=== PATIENT | female | born 1935 | race African-American/Black ===

== ENCOUNTER 2016-08-18 09:08 | Outpatient (CLI) | payer MEDICARE, MEDICAID | END 2016-08-18 09:09 | disposition home or self-care (01) | LOC: NAVSJIPCSP 09:08 | PROVIDERS: ATTEND Internal Medicine | DX: E78.5 Hyperlipidemia, unspecified (principal); E11.65 Type 2 diabetes mellitus with hyperglycemia; Z79.899 Other long term (current) drug therapy | CPT/HCPCS: 36415; 80061; 83036 ==

== ENCOUNTER 2016-10-01 08:34 | Outpatient (CLI) | payer MEDICARE, MEDICAID ==
[2016-10-01 13:08] LABS: Anion Gap 14 mmol/L (10-20); BUN (Urea Nitrogen) 36 mg/dL (9.8-20.1); Calc. Creatinine Clearance 0 mL/min (70-130); Calcium 9.8 mg/dL (7.8-10.44); Carbon Dioxide 27 mmol/L (23-31); Chloride 103 mmol/L (98-107); Estimated GFR-MDRD 28; Glucose 97 mg/dL (83-110); Potassium 4.4 mmol/L (3.5-5.1); Sodium 140 mmol/L (136-145)
[2016-10-02 22:11] LABS: Bilirubin Negative (Negative); Blood, Urine Negative (Negative); Clarity Clear (Clear); Glucose, Urine (Dipstick) Negative (Negative); Leukocyte Negative (Negative); Nitrite Negative (Negative); Protein, Urine (Dipstick) Trace mg/dL (Neg-Trace); Specific Gravity, Urine 1.015 (1.005-1.030); Urobilinogen 0.2 mg/dL (0.2-1.0)
[2016-10-02 22:21] LABS: Squamous Epithelial 0-3 HPF (0-3); WBC/HPF 0-3 HPF (0-3)
[2016-10-02 22:22] LABS: RBC/HPF 0-3 HPF (0-3)
== END 2016-10-01 08:35 | disposition home or self-care (01) ==
LOC: NAVSJIPCSP 08:34
PROVIDERS: ATTEND Internal Medicine
DX: E78.2 Mixed hyperlipidemia (principal); I50.32 Chronic diastolic (congestive) heart failure
CPT/HCPCS: 36415; 80048; 81001

== ENCOUNTER 2016-10-28 08:09 | Outpatient (CLI) | payer MEDICARE, MEDICAID ==
[2016-10-28 13:19] LABS: Anion Gap 15 mmol/L (10-20); BUN (Urea Nitrogen) 40 mg/dL (9.8-20.1); Calc. Creatinine Clearance 0 mL/min (70-130); Carbon Dioxide 26 mmol/L (23-31); Chloride 105 mmol/L (98-107); Estimated GFR-MDRD 28; Glucose 95 mg/dL (83-110); Potassium 4.8 mmol/L (3.5-5.1); Sodium 141 mmol/L (136-145)
== END 2016-10-28 08:10 | disposition home or self-care (01) ==
LOC: NAVSJIPCSP 08:09
PROVIDERS: ATTEND Internal Medicine
DX: N18.3 Chronic kidney disease, stage 3 (moderate) (principal)
CPT/HCPCS: 36415; 80048

== ENCOUNTER 2016-11-17 10:23 | Outpatient (CLI) | payer MEDICARE, MEDICAID ==
[2016-11-17 12:52] LABS: Anion Gap 16 mmol/L (10-20); BUN (Urea Nitrogen) 47 mg/dL (9.8-20.1); Calc. Creatinine Clearance 0 mL/min (70-130); Calcium 9.7 mg/dL (7.8-10.44); Carbon Dioxide 25 mmol/L (23-31); Chloride 102 mmol/L (98-107); Estimated GFR-MDRD 25; Glucose 148 mg/dL (83-110); Sodium 138 mmol/L (136-145)
== END 2016-11-17 10:24 | disposition home or self-care (01) ==
LOC: NAV LABSP 10:23
PROVIDERS: ATTEND Internal Medicine Nephrology
DX: I13.0 Hypertensive heart and chronic kidney disease with heart failure and stage 1 through stage 4 chronic kidney disease, or unspecified chronic kidney disease (principal); N18.3 Chronic kidney disease, stage 3 (moderate); I50.9 Heart failure, unspecified; R60.0 Localized edema
CPT/HCPCS: 36415; 80048

== ENCOUNTER 2016-11-25 09:29 | Outpatient (CLI) | payer MEDICARE, MEDICAID ==
[2016-11-25 12:29] LABS: Hemoglobin A1c 7.1 % (4.0-6.0)
[2016-11-25 13:00] LABS: Cardiac Risk 3.9 (Less than 4.5)
== END 2016-11-25 09:30 | disposition home or self-care (01) ==
LOC: NAVSJIPCSP 09:29
PROVIDERS: ATTEND Internal Medicine
DX: E78.2 Mixed hyperlipidemia (principal); E11.65 Type 2 diabetes mellitus with hyperglycemia
CPT/HCPCS: 36415; 80061; 83036

== ENCOUNTER 2016-12-08 13:05 | Outpatient (CLI) | payer MEDICARE, MEDICAID ==
[2016-12-08 19:16] LABS: Anion Gap 14 mmol/L (10-20); BUN (Urea Nitrogen) 32 mg/dL (9.8-20.1); Calc. Creatinine Clearance 0 mL/min (70-130); Calcium 9.9 mg/dL (7.8-10.44); Carbon Dioxide 23 mmol/L (23-31); Chloride 109 mmol/L (98-107); Estimated GFR-MDRD 33; Glucose 78 mg/dL (83-110); Potassium 4.5 mmol/L (3.5-5.1); Sodium 141 mmol/L (136-145)
[2016-12-08 22:30] LABS: Bilirubin Negative (Negative); Blood, Urine Negative (Negative); Clarity Clear (Clear); Glucose, Urine (Dipstick) Negative (Negative); Leukocyte Trace (Negative); Nitrite Negative (Negative); Protein, Urine (Dipstick) 30 mg/dL (Neg-Trace); Urobilinogen 0.2 mg/dL (0.2-1.0); pH, Urine 5.5 (5.0-9.0)
[2016-12-08 22:51] LABS: RBC/HPF 0-3 HPF (0-3); Specific Gravity, Urine 1.007 (1.002-1.036)
[2016-12-08 22:52] LABS: Bacteria/HPF None Seen HPF (None Seen); WBC/HPF None Seen HPF (0-3)
[2016-12-09 15:56] LABS: Creatinine, Urine 30.4 mg/dL (47-110)
== END 2016-12-08 13:06 | disposition home or self-care (01) ==
LOC: NAVSJIPCSP 13:05
PROVIDERS: ATTEND Internal Medicine
DX: I12.9 Hypertensive chronic kidney disease with stage 1 through stage 4 chronic kidney disease, or unspecified chronic kidney disease (principal); E11.22 Type 2 diabetes mellitus with diabetic chronic kidney disease; N18.3 Chronic kidney disease, stage 3 (moderate); R80.9 Proteinuria, unspecified; R60.0 Localized edema
CPT/HCPCS: 80048; 81001; 82570; 84156; 85014; 85018; 86038

== ENCOUNTER 2017-02-10 16:09 | Outpatient (CLI) | payer MEDICARE, MEDICAID ==
[2017-02-10 17:25] LABS: Anion Gap 15 mmol/L (10-20); BUN (Urea Nitrogen) 28 mg/dL (9.8-20.1); Calc. Creatinine Clearance 0 mL/min (70-130); Calcium 9.6 mg/dL (7.8-10.44); Carbon Dioxide 22 mmol/L (23-31); Chloride 107 mmol/L (98-107); Estimated GFR-MDRD 27; Glucose 179 mg/dL (83-110); Potassium 4.3 mmol/L (3.5-5.1); Sodium 140 mmol/L (136-145)
== END 2017-02-10 16:10 | disposition home or self-care (01) ==
LOC: NAVSJIPCSP 16:09
PROVIDERS: ATTEND Internal Medicine Nephrology
DX: I12.9 Hypertensive chronic kidney disease with stage 1 through stage 4 chronic kidney disease, or unspecified chronic kidney disease (principal); I13.0 Hypertensive heart and chronic kidney disease with heart failure and stage 1 through stage 4 chronic kidney disease, or unspecified chronic kidney disease; N18.3 Chronic kidney disease, stage 3 (moderate)
CPT/HCPCS: 80048

== ENCOUNTER 2017-02-26 09:26 | Outpatient (CLI) | payer MEDICARE, MEDICAID ==
[2017-02-26 12:34] LABS: Hemoglobin A1c 6.6 % (4.0-6.0)
[2017-02-26 13:09] LABS: Cardiac Risk 4.8 (Less than 4.5)
== END 2017-02-26 09:27 | disposition home or self-care (01) ==
LOC: NAVSJIPCSP 09:26
PROVIDERS: ATTEND Internal Medicine
DX: E11.65 Type 2 diabetes mellitus with hyperglycemia (principal); I25.10 Atherosclerotic heart disease of native coronary artery without angina pectoris; E78.5 Hyperlipidemia, unspecified
CPT/HCPCS: 36415; 80061; 83036

== ENCOUNTER 2017-09-30 07:15 | Outpatient (CLI) | payer MEDICARE, MEDICAID ==
--- NOTE | 2017-09-30 08:05 | RAD ---
LEFT HIP 2 VIEWS: Date: 09/30/17 PROVIDED CLINICAL HISTORY: Left hip pain. FINDINGS: There is no evidence for fracture or other acute osseous abnormality. Left hip degenerative changes a re seen. Left hip joint space appears preserved. Alignment appears anatomic. IMPRESSION: Left hip degenerative change. POS: VIC
== END 2017-09-30 07:16 | disposition home or self-care (01) ==
LOC: NAV RAD 07:15
PROVIDERS: ATTEND Internal Medicine
DX: M25.552 Pain in left hip (principal); M16.12 Unilateral primary osteoarthritis, left hip

== ENCOUNTER 2018-08-26 11:59 | Outpatient (CLI) | payer MEDICARE, MEDICAID ==
--- NOTE | 2018-08-26 14:13 | RAD ---
RIGHT SHOULDER THREE VIEWS: 08/26/2018 HISTORY: Shoulder pain. COMPARISON: None. FINDINGS: Postoperative anchors overly the humeral head. There is mild joint space narrowing involving the gle nohumeral joint. There is no widening of the acromioclavicular or coracoclavicular interspace. No d isplaced fracture or dislocation is seen. IMPRESSION: No acute osseous abnormality. POS: VIC
--- NOTE | 2018-08-26 14:18 | RAD ---
TWO VIEWS OF THE LEFT HIP: DATE: 08/26/2018. HISTORY: Left hip pain. FINDINGS: There is moderate superior joint space narrowing involving the left hip with significant left lateral acetabular osteophyte formation. There is subchondral sclerosis and subchondral cystic change invol ving the acetabular roof and the femoral head. No acute fracture or dislocation. There is degenerat deidra change involving the left sacroiliac joint. Imaged lumbar spine demonstrates multilevel lower vanessa mbar spine facet hypertrophy on the left. IMPRESSION: Significant degenerative change of the left hip as detailed above. POS: TOMAS
== END 2018-08-26 12:00 | disposition home or self-care (01) ==
LOC: NAV RAD 11:59
PROVIDERS: ATTEND Orthopaedic Surgery
DX: M25.511 Pain in right shoulder (principal); M25.552 Pain in left hip; M16.12 Unilateral primary osteoarthritis, left hip

== ENCOUNTER 2018-10-16 17:25 | Emergency (ER) | payer MEDICARE, MEDICAID ==
[2018-10-16] MEDS ORDERED: Morphine 4 MG/ML VIAL ONE (17:57)
[2018-10-16 18:24] LABS: Bilirubin Negative (Negative); Blood, Urine Trace (Negative); Clarity Clear (Clear); Glucose, Urine (Dipstick) 100 mg/dL (Negative); Leukocyte Negative (Negative); Nitrite Negative (Negative); Protein, Urine (Dipstick) > or equal to 300 mg/dL (Neg-Trace); Urobilinogen 0.2 mg/dL (0.2-1.0)
--- NOTE | 2018-10-16 18:25 | CT ---
Exam: Head CT without contrast HISTORY: Fall. Weakness x2 weeks. COMPARISON: none FINDINGS: Hemorrhage: No intraparenchymal hemorrhage or extra-axial hematoma. Brain parenchyma: Cortical tapai-white matter differentiation is preserved. No mass effect or midline shift. Basilar cisterns are patent. Brain volume, age-appropriate. Ventricular system: Ventricles and sulci are patent and symmetric. Calvarium: Intact. Sinuses and mastoid air cells: Adequate aeration. IMPRESSION: No acute intracranial process.
--- NOTE | 2018-10-16 18:26 | RAD ---
Exam: One view pelvis HISTORY: Fall. Pain. FINDINGS: Limited evaluation of the sacral alar. Sacroiliac joints appear to be patent. Bony pelvis a ppears to be intact. No fracture. Based on this AP projection, no evidence of a left or right hip fracture. There is degenerative changes involving the left hip. IMPRESSION: No fracture. Additional imaging if clinically warranted.
--- NOTE | 2018-10-16 18:30 | RAD ---
Exam:Left hip 2 views HISTORY: Fall. Pain. COMPARISON: 08/26/2018 FINDINGS: Contour of the femoral head is maintained. Stable degenerative changes with sclerosis and s ubchondral cyst formation. No definite fracture. IMPRESSION: 1. Stable degenerative changes. 2. No definite fracture.
--- NOTE | 2018-10-16 18:32 | RAD ---
Exam:2 views right hip HISTORY: Weakness. COMPARISON: None FINDINGS: Contour of the femoral head is maintained. No fracture. Joint spaces preserved. IMPRESSION: Unremarkable 2 views right hip.
[2018-10-16 18:38] LABS: RBC/HPF 0-3 HPF (0-3); Squamous Epithelial 0-3 HPF (0-3); WBC/HPF 0-3 HPF (0-3)
== END 2018-10-16 19:50 | disposition home or self-care (01) ==
LOC: NAV ERS 17:25
DX: S70.01XA Contusion of right hip, initial encounter (principal); S70.02XA Contusion of left hip, initial encounter; I25.10 Atherosclerotic heart disease of native coronary artery without angina pectoris; E11.9 Type 2 diabetes mellitus without complications; I10 Essential (primary) hypertension; Z87.891 Personal history of nicotine dependence; Z79.899 Other long term (current) drug therapy; Z79.82 Long term (current) use of aspirin; Z79.51 Long term (current) use of inhaled steroids; W19.XXXA Unspecified fall, initial encounter
CPT/HCPCS: 51701; 70450; 72170; 81003; 81015; 96372; A4353; J2270

== ENCOUNTER 2019-03-14 13:06 | Emergency (ER) | payer MEDICARE, MEDICAID ==
[2019-03-14] MEDS ORDERED: Acetaminophen 325 MG TAB ONE (13:44)
[2019-03-14 14:00] LABS: #Eosinphils 0.1 thou/uL (0.0-0.7); #Lymphocytes 1.1 thou/uL (1.20-3.40); #Monocytes 0.3 thou/uL (0.11-0.59); #Neutrophils 3.4 thou/uL (1.40-6.50); %Basophils 0.6 % (0.0-1.0); %Eosinophils 2.8 % (0.0-10.0); %Lymphocytes 21.6 % (21.0-51.0); %Monocytes 5.9 % (0.0-10.0); %Neutrophils 69.2 % (42.0-75.0); Hemoglobin 10.4 g/dL (12.0-16.0); Mean Corpuscular HGB CONC 31.5 g/dL (32.0-36.0); Mean Corpuscular Hemoglobin 26.9 pg (27.0-31.0); Mean Corpuscular Volume 85.4 fL (78.0-98.0); Mean Platelet Volume 6.8 fL (7.4-10.4); Platelet Count 202 thou/uL (130-400); RBC Distribution Width 12.8 % (11.5-14.5); Red Blood Cell (RBC) Count 3.85 mill/uL (4.20-5.40); White Blood Cell (WBC) Count 4.9 thou/uL (4.8-10.8)
--- NOTE | 2019-03-14 14:08 | RAD ---
CHEST 1 VIEW: Date: 03/14/19 HISTORY: Pain. COMPARISON: None. FINDINGS: Atherosclerosis of aortic knob. Normal cardiac silhouette. Pulmonary vessels and hilum are normal. Co stophrenic angles are clear. Patchy interstitial opacities which may represent edema or infiltrate. N o pneumothorax or osseous abnormalities. IMPRESSION: 1. Patchy interstitial opacities which may represent edema or infiltrate. 2. Atherosclerosis. POS: [facility]
[2019-03-14 14:16] LABS: ALT (SGPT) 8 U/L (8-55); AST (SGOT) 11 U/L (5-34); Albumin 3.5 g/dL (3.4-4.8); Alkaline Phosphatase 85 U/L (40-110); Anion Gap 15 mmol/L (10-20); BUN (Urea Nitrogen) 26 mg/dL (9.8-20.1); Bilirubin, Total 0.3 mg/dL (0.2-1.2); Calc. Creatinine Clearance 0 mL/min (70-130); Calcium 9.9 mg/dL (7.8-10.44); Carbon Dioxide 22 mmol/L (23-31); Chloride 110 mmol/L (98-107); Estimated GFR-MDRD 20; Globulin 3.1 g/dL (2.4-3.5); Glucose 142 mg/dL (83-110); Protein, Total 6.6 g/dL (6.0-8.3); Sodium 143 mmol/L (136-145)
== END 2019-03-14 16:15 | disposition home or self-care (01) ==
LOC: NAV ERS 13:06
DX: R07.89 Other chest pain (principal); E11.9 Type 2 diabetes mellitus without complications; I10 Essential (primary) hypertension; J45.909 Unspecified asthma, uncomplicated; Z87.891 Personal history of nicotine dependence; Z85.038 Personal history of other malignant neoplasm of large intestine; Z79.82 Long term (current) use of aspirin; Z79.899 Other long term (current) drug therapy; Z79.84 Long term (current) use of oral hypoglycemic drugs
CPT/HCPCS: 36415; 71045; 80053; 83880; 84484; 85025; 93005

== ENCOUNTER 2019-06-23 12:16 | Outpatient (CLI) | payer MEDICARE, MEDICAID ==
--- NOTE | 2019-06-23 12:42 | RAD ---
EXAM: Chest 2 views: HISTORY: Chest pain COMPARISON: 05/21/2016 FINDINGS: There is a normal-sized cardiomediastinal silhouette. Atherosclerotic calcifications are seen in the aorta. There is no evidence of consolidation, mass, or pleural effusion. Bone anchors are seen in the right humerus from prior rotator cuff repair. IMPRESSION: No evidence of acute cardiopulmonary disease
== END 2019-06-23 12:17 | disposition home or self-care (01) ==
LOC: NAV RAD 12:16
PROVIDERS: ATTEND Internal Medicine
DX: R07.89 Other chest pain (principal)
CPT/HCPCS: 71046

== ENCOUNTER 2019-10-07 20:23 | Inpatient (IN) | payer MEDICARE, MEDICAID ==
[2019-10-07 20:58] VITALS: BMI 18.2
[2019-10-07] MEDS ORDERED: Dextrose 5% in Water 1,000 ML IV PRN (22:31)
[2019-10-07] MEDS ORDERED: Dextrose 50% Abboject 50 ML SYRINGE IVP PRN (22:32)
[2019-10-08] MEDS ORDERED: Heparin 5,000 UNITS/ML VIAL CATH PRN (06:18)
[2019-10-08] MEDS ORDERED: Sterile Water 10 ML VIAL IVP PRN (06:27)
[2019-10-08] MEDS ORDERED: Activase 2 MG VIAL CATH PRN (06:27)
[2019-10-08] MEDS: Lidocaine 5% Patch TD SCH (08:56)
[2019-10-08] MEDS: Polyethylene Glycol 3350 17 GM Packet PO SCH (08:56)
[2019-10-08] MEDS: hydrALAZINE 10 MG TAB PO SCH ×2 (08:56→20:58)
[2019-10-08] MEDS: Ferrous Sulfate 325 MG TAB PO SCH (08:56)
[2019-10-08] MEDS: NIFEdipine XL 30 MG TAB PO SCH (08:57)
[2019-10-08] MEDS: Famotidine 20 MG TAB PO SCH ×2 (08:58→20:58)
[2019-10-08] MEDS: Docusate 100 MG CAP PO SCH ×2 (08:58→20:57)
[2019-10-08] MEDS: Magnesium Oxide 400 MG TAB PO SCH ×2 (08:58→20:58)
[2019-10-08] MEDS: Carvedilol 3.125 MG TAB PO SCH ×2 (08:58→17:04)
[2019-10-08] MEDS: Sildenafil Citrate 20 MG TAB PO SCH ×3 (10:49→19:40)
[2019-10-08] MEDS: Albuterol Sulfate 2.5 mg/3 ml Neb NEB PRN (14:53)
[2019-10-08] MEDS ORDERED: Epoetin (ESRD) 20,000 UNITS/ML IVP PRN (15:19)
[2019-10-08] MEDS ORDERED: EPOETIN ALFA-EPBX (ESRD) 10,000 UNIT/ML VIAL IVP PRN (16:45)
[2019-10-08] MEDS: Lidocaine Patch Removal 1 EACH TOP SCH (20:58)
[2019-10-09] MEDS: HYDROcodone/Acetaminophen 7.5/325 mg Tablet PO PRN (06:27)
[2019-10-09] MEDS: Lidocaine 5% Patch TD SCH (08:51)
[2019-10-09] MEDS: Ferrous Sulfate 325 MG TAB PO SCH (08:51)
[2019-10-09] MEDS: Magnesium Oxide 400 MG TAB PO SCH ×2 (08:52→20:51)
[2019-10-09] MEDS: NIFEdipine XL 30 MG TAB PO SCH (08:52)
[2019-10-09] MEDS: Docusate 100 MG CAP PO SCH ×2 (08:52→20:51)
[2019-10-09] MEDS: Famotidine 20 MG TAB PO SCH ×2 (08:52→20:51)
[2019-10-09] MEDS: Carvedilol 3.125 MG TAB PO SCH ×2 (08:53→16:16)
[2019-10-09] MEDS: hydrALAZINE 10 MG TAB PO SCH ×2 (08:53→20:51)
[2019-10-09] MEDS: Polyethylene Glycol 3350 17 GM Packet PO SCH (08:53)
[2019-10-09] MEDS: Sildenafil Citrate 20 MG TAB PO SCH ×3 (08:54→20:52)
[2019-10-09] MEDS ORDERED: Ondansetron ODT 4 MG TAB PO PRN (18:26)
[2019-10-09] MEDS: Lidocaine Patch Removal 1 EACH TOP SCH (20:52)
--- NOTE | 2019-10-09 21:15 | PRG ---
DATE OF SERVICE: 10/09/2019 SUBJECTIVE: The patient feels well lying in bed. She is still having nausea, but no vomiting. No shortness of breath or chest pain. OBJECTIVE: VITAL SIGNS: Blood pressure 147/65, temperature 99, pulse 80, respirations 18, and O2 sats 96% on room air. HEENT: Pupils equal, round, and reactive to light and accommodation. Sclerae anicteric. Conjunctivae pale. Oral mucous membranes well hydrated. NECK: Supple. No nodes or masses. JVP is not elevated. LUNGS: Clear. CARDIAC: Clear with only few crackles in the bases. CARDIAC: Regular rhythm. No gallops or murmurs. ABDOMEN: Soft and nontender. No masses or organomegaly. SKIN/EXTREMITIES: Trace edema. No clubbing or cyanosis. NEUROLOGICAL: Grossly intact. ASSESSMENT: 1. Recurrent nausea, possibly due to worsening renal failure. We will obtain laboratory today. Awaiting for dialysis in 2 days. We will discuss with Nephrology. 2. Hypertension with adequate control. 3. Type 2 diabetes, controlled to goal. 4. Deconditioning. Awaiting PT and OT. PLAN: 1. CBC and comp met now. 2. Discuss with Dr. Cavazos, who will be back tonight. 3. Follow up with Dr. Ascencio for dialysis on Thursday. 4. Continue Accu-Cheks to monitor and titrate and control of diabetes. 5. Continue to monitor blood pressure closely. Job ID: [id number]
[2019-10-09 21:30] LABS: Band 5 % (5-11); Hemoglobin 8.3 g/dL (12.0-16.0); Hypochromia SLIGHT = 6-15 cells (100X) (0-5/hpf); MDiff Complete? YES; Mean Corpuscular HGB CONC 32.4 g/dL (32.0-36.0); Mean Corpuscular Hemoglobin 29.3 pg (27.0-31.0); Mean Corpuscular Volume 90.4 fL (78.0-98.0); Mean Platelet Volume 7.5 fL (7.4-10.4); Monocytes 6 % (0-10); Neutrophil 89 % (42-75); Platelet Count 208 thou/uL (130-400); Platelet Morphology Comment Appears Adequate; RBC Distribution Width 15.2 % (11.5-14.5); Red Blood Cell (RBC) Count 2.83 mill/uL (4.20-5.40); White Blood Cell (WBC) Count 21.2 thou/uL (4.8-10.8)
[2019-10-09 21:34] LABS: ALT (SGPT) 120 U/L (8-55); AST (SGOT) 157 U/L (5-34); Albumin 2.7 g/dL (3.4-4.8); Alkaline Phosphatase 489 U/L (40-110); Anion Gap 15 mmol/L (10-20); BUN (Urea Nitrogen) 24 mg/dL (9.8-20.1); Bilirubin, Total 1.6 mg/dL (0.2-1.2); Calc. Creatinine Clearance 9 mL/min (70-130); Calcium 8.7 mg/dL (7.8-10.44); Carbon Dioxide 25 mmol/L (23-31); Chloride 102 mmol/L (98-107); Estimated GFR-MDRD 15; Globulin 2.8 g/dL (2.4-3.5); Glucose 170 mg/dL (83-110); Potassium 4.4 mmol/L (3.5-5.1); Protein, Total 5.5 g/dL (6.0-8.3); Sodium 138 mmol/L (136-145)
--- NOTE | 2019-10-10 02:01 | HP ---
HISTORY OF PRESENT ILLNESS: The patient is an unfortunate 83-year-old white female with a long history of hypertension, diabetes, hyperlipidemia with gradually progressive chronic kidney disease. She has progressed to the point that she has required initiation of dialysis. She is admitted to the skilled unit to continue followup with dialysis as she has not done well at home on this after being initiated in the hospital. She is complaining of some nausea, but no shortness of breath or chest pain. She did receive dialysis the day prior to admission. She is not having any fever or chills. PAST MEDICAL HISTORY: Remarkable for above-mentioned poorly controlled diabetes, hypertension, hyperlipidemia, chronic kidney disease stage 4, being followed by Dr. Ascencio, congestive heart failure, unknown type with no echocardiogram available. She also has a history of secondary pulmonary hypertension, gastroesophageal reflux, malignant neoplasm of the colon, gout. PAST SURGICAL HISTORY: Positive for colon resection in 2008. FAMILY MEDICAL HISTORY: Positive for heart disease and stroke. ALLERGIES: SHE HAS NO KNOWN ALLERGIES. REVIEW OF SYSTEMS: HEENT: She denies headaches, dizziness, change in vision or hearing, hoarseness, or dysphagia. PULMONARY: She denies cough, sputum production. Does have dyspnea on exertion, not at rest. No sputum production. CARDIOVASCULAR: Denies chest pain, palpitation. She does have one-pillow orthopnea and no edema. GASTROINTESTINAL: Does complain of nausea with no vomiting or diarrhea. She does have poor appetite. GENITOURINARY: Denies dysuria, hematuria. Is still putting out urine, but lesser amount. NEUROLOGIC: Denies localized numbness, weakness, to arm or extremities. PHYSICAL EXAMINATION: GENERAL: Shows her to be elderly black female, lying in bed, in no acute distress. Oriented x3 and cooperative. VITAL SIGNS: Showed a temperature of 98.3, pulse 63, respirations 20, O2 sats 97% on room air, blood pressure 183/81. HEENT: Pupils are equal, round, and reactive to light and accommodation. Sclerae anicteric. Conjunctivae pale. Oral mucous membranes well hydrated. NECK: Supple. No nodes or masses. JVP is not elevated. LUNGS: Clear. Decreased breath sounds at bases. CARDIAC: Shows regular rhythm. No gallops or murmurs. ABDOMEN: Soft and nontender with no masses or organomegaly. SKIN/EXTREMITIES: Display no edema, clubbing, cyanosis. There is a tunneled catheter in the right side of the chest from dialysis. NEUROLOGIC: Denies localized numbness or weakness in arms or extremities. Has normal strength, sensation on all her extremities. LABORATORY: Show Accu-Cheks range 134 to 170. ASSESSMENT: 1. End-stage renal disease with initiation of dialysis initially done day before yesterday and not scheduled until next week. 2. Hypertension, fair control. 3. Type 2 diabetes with good control. 4. Gastroesophageal reflux, stable. 5. Deconditioning. PLAN: 1. Restart home medications of sildenafil 20 mg 3 times daily for pulmonary hypertension, hydralazine 10 mg twice daily, nifedipine 30 mg daily for systolic hypertension with carvedilol 3.125 twice daily. 2. Continue Accu-Cheks to monitor and titrate and control diabetes. 3. Restart dialysis on Thursday. Job ID: [id number]
[2019-10-10] MEDS: Magnesium Oxide 400 MG TAB PO SCH ×2 (08:22→20:36)
[2019-10-10] MEDS: Ferrous Sulfate 325 MG TAB PO SCH (08:22)
[2019-10-10] MEDS: hydrALAZINE 10 MG TAB PO SCH ×2 (08:22→20:06)
[2019-10-10] MEDS: Lidocaine 5% Patch TD SCH (08:22)
[2019-10-10] MEDS: NIFEdipine XL 30 MG TAB PO SCH (08:22)
[2019-10-10] MEDS: Famotidine 20 MG TAB PO SCH ×2 (08:22→20:36)
[2019-10-10] MEDS: Sildenafil Citrate 20 MG TAB PO SCH ×4 (08:23→20:36)
[2019-10-10] MEDS: Carvedilol 3.125 MG TAB PO SCH ×2 (08:23→17:27)
[2019-10-10] MEDS: Docusate 100 MG CAP PO SCH ×2 (08:23→20:07)
[2019-10-10] MEDS: Polyethylene Glycol 3350 17 GM Packet PO SCH (08:23)
[2019-10-10] MEDS: HumaLOG 300 UNITS/3 ML VIAL SC PRN (12:05)
--- NOTE | 2019-10-10 13:28 | PRG ---
DATE OF SERVICE: 10/10/2019 SUBJECTIVE: Ms. Tillman is up in her chair and just finished lunch. She denies any concerns. She did have an episode of abdominal pain yesterday, but none today. She is noticing some exertional shortness of breath. No chest pain. No PND or orthopnea. No family at bedside. OBJECTIVE: VITAL SIGNS: She is afebrile. Heart rate is 71, respirations 18, oxygen saturation 99%. She still has nasal cannula on her. Blood pressure is 151/71. CARDIOVASCULAR: S1 and S2 plus. RESPIRATORY: Normal vesicular breath sounds. ABDOMEN: Soft, nontender. Bowel sounds heard in all quadrants. EXTREMITIES: Without cyanosis or clubbing. CENTRAL NERVOUS SYSTEM: Generalized weakness. She does have a tunneled catheter in the right subclavian for dialysis. IMPRESSION: 1. Pulmonary hypertension. 2. Acute hypoxemic respiratory failure. 3. Biliary stricture, status post endoscopic retrograde cholangiopancreatography and stent placement. 4. Diabetes mellitus, type 2. 5. Hypertension. 6. Dyslipidemia. 7. Now end-stage renal disease, on dialysis. 8. Gastroesophageal reflux disease and history of colon cancer, status post surgery. PLAN: 1. Continue current medications. 2. Heart healthy ADA diet. 3. Accu-Cheks with sliding scale coverage. 4. Dialysis on Thursday, , Thursday. 5. Monitor liver function. 6. Try to get records from the hospital to see if any pathologies available on the biliary stricture. 7. Titrate oxygen. 8. Continue PT/OT. 9. Tunneled dialysis catheter care. 10. Routine laboratory values. 11. Discussed with the patient in detail. All questions answered. Job ID: [id number]
[2019-10-10] MEDS: HYDROcodone/Acetaminophen 7.5/325 mg Tablet PO PRN (20:38)
[2019-10-10] MEDS: Lidocaine Patch Removal 1 EACH TOP SCH (20:39)
[2019-10-11 06:02] LABS: #Eosinphils 0.1 thou/uL (0.0-0.7); #Lymphocytes 0.3 thou/uL (1.20-3.40); #Monocytes 0.8 thou/uL (0.11-0.59); #Neutrophils 8.1 thou/uL (1.40-6.50); %Basophils 0.3 % (0.0-1.0); %Lymphocytes 3.6 % (21.0-51.0); %Monocytes 8.7 % (0.0-10.0); %Neutrophils 86.5 % (42.0-75.0); Hemoglobin 7.4 g/dL (12.0-16.0); Mean Corpuscular HGB CONC 31.4 g/dL (32.0-36.0); Mean Corpuscular Hemoglobin 28.3 pg (27.0-31.0); Mean Corpuscular Volume 89.9 fL (78.0-98.0); Mean Platelet Volume 7.7 fL (7.4-10.4); Platelet Count 215 thou/uL (130-400); RBC Distribution Width 15.4 % (11.5-14.5); White Blood Cell (WBC) Count 9.4 thou/uL (4.8-10.8)
[2019-10-11 06:08] LABS: ALT (SGPT) 64 U/L (8-55); AST (SGOT) 41 U/L (5-34); Albumin 2.7 g/dL (3.4-4.8); Alkaline Phosphatase 354 U/L (40-110); Anion Gap 13 mmol/L (10-20); BUN (Urea Nitrogen) 34 mg/dL (9.8-20.1); Bilirubin, Total 1.1 mg/dL (0.2-1.2); Calc. Creatinine Clearance 8 mL/min (70-130); Calcium 8.7 mg/dL (7.8-10.44); Carbon Dioxide 27 mmol/L (23-31); Chloride 103 mmol/L (98-107); Estimated GFR-MDRD 14; Globulin 2.9 g/dL (2.4-3.5); Glucose 91 mg/dL (83-110); Potassium 4.4 mmol/L (3.5-5.1); Protein, Total 5.6 g/dL (6.0-8.3); Sodium 139 mmol/L (136-145)
[2019-10-11] MEDS: Docusate 100 MG CAP PO SCH ×2 (08:23→21:14)
[2019-10-11] MEDS: Magnesium Oxide 400 MG TAB PO SCH ×2 (08:23→21:14)
[2019-10-11] MEDS: Ferrous Sulfate 325 MG TAB PO SCH (08:23)
[2019-10-11] MEDS: hydrALAZINE 10 MG TAB PO SCH ×2 (08:24→21:14)
[2019-10-11] MEDS: Famotidine 20 MG TAB PO SCH ×2 (08:24→21:14)
[2019-10-11] MEDS: Carvedilol 3.125 MG TAB PO SCH ×2 (08:24→16:44)
[2019-10-11] MEDS: NIFEdipine XL 30 MG TAB PO SCH (08:25)
[2019-10-11] MEDS: Lidocaine 5% Patch TD SCH (08:25)
[2019-10-11] MEDS: Sildenafil Citrate 20 MG TAB PO SCH ×4 (08:26→21:14)
[2019-10-11] MEDS: Polyethylene Glycol 3350 17 GM Packet PO SCH (08:26)
[2019-10-11] MEDS: HYDROcodone/Acetaminophen 7.5/325 mg Tablet PO PRN (10:02)
--- NOTE | 2019-10-11 18:33 | PRG ---
DATE OF SERVICE: 10/11/2019 SUBJECTIVE: Ms. Tillman was seen on her way to dialysis. She had a hemoglobin of 7.4, but she is asymptomatic. I did tell them to hold her blood pressure medicines, but give her the Revatio, but apparently therefore she was not in yet from [place]. She had a restful night. No family at bedside. OBJECTIVE: VITAL SIGNS: She is afebrile. Heart rate is 76, blood pressure is 160/77. CARDIOVASCULAR SYSTEM: S1 and S2 plus. RESPIRATORY SYSTEM: Normal vesicular breath sounds. ABDOMEN: Soft and nontender. Bowel sounds heard in all quadrants. EXTREMITIES: Without cyanosis or clubbing. CENTRAL NERVOUS SYSTEM: Improving deconditioning. LABORATORY DATA: Laboratory values from this morning shows a hemoglobin of 7.4. Sodium 139, potassium 4.4, BUN and creatinine is 34 and 3.86. Blood sugars are 113, 241, 100, 140, and 90. IMPRESSION: 1. Anemia, worsening, likely due to chronic disease. 2. Pulmonary hypertension. 3. Diabetes mellitus, type 2. 4. End-stage renal disease, on hemodialysis. 5. Biliary stricture, requiring stent placement. Awaiting records. 6. Hypertension. 7. Dyslipidemia. 8. Gastroesophageal reflux disease. 9. History of colon cancer. 10. Acute hypoxemic respiratory failure. PLAN: 1. Continue to titrate oxygen. 2. Monitor respiratory status. 3. 1800 calorie, heart healthy, and renal diet. 4. Accu-Cheks with sliding scale coverage. 5. Hemodialysis. 6. Monitor blood counts and transfuse if hemoglobin less than 7. 7. Continue PT/OT. 8. Await lab reports from the hospital regarding pathology. 9. Discussed with the patient and nursing in detail. All questions answered. Job ID: [id number]
[2019-10-11] MEDS: Lidocaine Patch Removal 1 EACH TOP SCH (21:15)
[2019-10-11] MEDS: HumaLOG 300 UNITS/3 ML VIAL SC PRN (21:18)
[2019-10-12 05:58] LABS: Anisocytosis SLIGHT = 6-15 cells (100X) (0-5/hpf); Band 20 % (5-11); Eosinophils 2 % (0-10); Hemoglobin 7.4 g/dL (12.0-16.0); Hypochromia MODERATE=16-30 cells (100X) (0-5/hpf); Lymphocytes 2 % (21-51); MDiff Complete? YES; Mean Corpuscular HGB CONC 32.2 g/dL (32.0-36.0); Mean Corpuscular Hemoglobin 29.2 pg (27.0-31.0); Mean Corpuscular Volume 90.7 fL (78.0-98.0); Mean Platelet Volume 7.9 fL (7.4-10.4); Metamyelocyte 1 % (0-0); Monocytes 2 % (0-10); Neutrophil 73 % (42-75); Platelet Count 209 thou/uL (130-400); Platelet Morphology Comment Appears Adequate; Polychromasia SLIGHT = 2-3 cells (100X) (0-2/hpf); RBC Distribution Width 15.4 % (11.5-14.5); Red Blood Cell (RBC) Count 2.53 mill/uL (4.20-5.40); White Blood Cell (WBC) Count 8.8 thou/uL (4.8-10.8)
[2019-10-12] MEDS: Lidocaine 5% Patch TD SCH (08:25)
[2019-10-12] MEDS: Sildenafil Citrate 20 MG TAB PO SCH ×3 (08:25→21:21)
[2019-10-12] MEDS: Magnesium Oxide 400 MG TAB PO SCH ×2 (08:25→21:21)
[2019-10-12] MEDS: Famotidine 20 MG TAB PO SCH ×2 (08:25→21:20)
[2019-10-12] MEDS: hydrALAZINE 10 MG TAB PO SCH ×2 (08:25→21:20)
[2019-10-12] MEDS: Carvedilol 3.125 MG TAB PO SCH ×2 (08:25→16:20)
[2019-10-12] MEDS: Docusate 100 MG CAP PO SCH ×2 (08:25→21:20)
[2019-10-12] MEDS: Ferrous Sulfate 325 MG TAB PO SCH (08:25)
[2019-10-12] MEDS: NIFEdipine XL 30 MG TAB PO SCH (08:25)
[2019-10-12] MEDS: Polyethylene Glycol 3350 17 GM Packet PO SCH (08:26)
--- NOTE | 2019-10-12 12:59 | PRG ---
DATE OF SERVICE: 10/12/2019 SUBJECTIVE: Ms. Tillman is doing the same. Denies any complaints. She had her dialysis yesterday. Rechecked her hemoglobin and still 7.4. OBJECTIVE: VITAL SIGNS: She is afebrile, heart rate 67, and respirations 16. No other vitals documented. CARDIOVASCULAR SYSTEM: S1 and S2 plus. RESPIRATORY SYSTEM: Normal vesicular breath sounds. ABDOMEN: Soft and nontender. Bowel sounds heard in all quadrants. EXTREMITIES: Without cyanosis or clubbing. CENTRAL NERVOUS SYSTEM: Generalized weakness. LABORATORY VALUES: Show a white count of 8.8 and H and H are 7.4 and 22.9. Blood sugars are 140, 90, 104, 238, and 129. IMPRESSION: 1. Anemia, likely due to end-stage renal disease. 2. End-stage renal disease, currently on hemodialysis. 3. Pulmonary hypertension. 4. Diabetes mellitus, type 2. 5. Biliary stricture status post stent placement. 6. Deconditioning. 7. Acute hypoxemic respiratory failure. 8. Hypertension. 9. Dyslipidemia. 10. Gastroesophageal reflux disease. PLAN: 1. Continue current medications. 2. An 1800-calorie heart healthy ADA renal diet. 3. Accu-Cheks with sliding scale coverage. 4. Hemodialysis per Nephrology. 5. Monitor blood counts. 6. Continue therapy. 7. Get pathology results from [facility]. 8. Nutritional support. 9. Discussed with the patient in detail. 10. Titrate oxygen and monitor respiratory status. Job ID: [id number]
[2019-10-12] MEDS: HYDROcodone/Acetaminophen 7.5/325 mg Tablet PO PRN (16:19)
[2019-10-12] MEDS: HumaLOG 300 UNITS/3 ML VIAL SC PRN (17:37)
[2019-10-12] MEDS: Lidocaine Patch Removal 1 EACH TOP SCH (21:21)
[2019-10-13] MEDS: NIFEdipine XL 30 MG TAB PO SCH (08:15)
[2019-10-13] MEDS: hydrALAZINE 10 MG TAB PO SCH ×2 (08:16→21:07)
[2019-10-13] MEDS: Carvedilol 3.125 MG TAB PO SCH ×2 (08:17→17:16)
[2019-10-13] MEDS: Ferrous Sulfate 325 MG TAB PO SCH (08:18)
[2019-10-13] MEDS: Docusate 100 MG CAP PO SCH ×2 (08:18→21:08)
[2019-10-13] MEDS: Famotidine 20 MG TAB PO SCH ×2 (08:18→21:07)
[2019-10-13] MEDS: Sildenafil Citrate 20 MG TAB PO SCH ×3 (08:20→21:08)
[2019-10-13] MEDS: Polyethylene Glycol 3350 17 GM Packet PO SCH (08:20)
[2019-10-13] MEDS: Lidocaine 5% Patch TD SCH (08:20)
[2019-10-13] MEDS: Magnesium Oxide 400 MG TAB PO SCH ×2 (08:20→21:07)
--- NOTE | 2019-10-13 13:53 | PRG ---
DATE OF SERVICE: 10/13/2019 SUBJECTIVE: Ms. Tillman is seen on her way to dialysis. She denies any questions or concerns. Discussed with Nursing. OBJECTIVE: VITAL SIGNS: She is afebrile, heart rate 73, respirations 18, oxygen saturation 100%, and blood pressure was 156/70. CARDIOVASCULAR: S1 and S2 plus. RESPIRATORY: Normal vesicular breath sounds. ABDOMEN: Soft and nontender. Bowel sounds heard in all quadrants. EXTREMITIES: Without cyanosis or clubbing. CENTRAL NERVOUS SYSTEM: Improving deconditioning. LABORATORY DATA: Blood sugars are 129, 305, 125, and 119. IMPRESSION: 1. Acute hypoxemic respiratory failure. 2. End-stage renal disease, just started on hemodialysis. 3. Biliary stricture, status post stent placement. 4. Pulmonary hypertension. 5. Diabetes mellitus, type 2. 6. Deconditioning. 7. Systemic hypertension. 8. Dyslipidemia. 9. Gastroesophageal reflux disease. 10. Anemia, likely multifactorial. PLAN: 1. Continue current medications. 2. 1800 calorie heart healthy ADA diet. 3. Accu-Cheks with sliding scale coverage. 4. Hemodialysis. 5. Await records from [facility]. 6. Continue physical therapy. 7. Routine laboratory values. 8. Monitor respiratory status. Job ID: [id number]
[2019-10-13] MEDS: HumaLOG 300 UNITS/3 ML VIAL SC PRN (17:47)
[2019-10-13] MEDS: Lidocaine Patch Removal 1 EACH TOP SCH (21:09)
[2019-10-14] MEDS: hydrALAZINE 10 MG TAB PO SCH ×2 (08:21→20:43)
[2019-10-14] MEDS: Sildenafil Citrate 20 MG TAB PO SCH ×3 (08:21→20:43)
[2019-10-14] MEDS: NIFEdipine XL 30 MG TAB PO SCH (08:22)
[2019-10-14] MEDS: Famotidine 20 MG TAB PO SCH ×2 (08:22→20:43)
[2019-10-14] MEDS: Docusate 100 MG CAP PO SCH ×2 (08:22→20:43)
[2019-10-14] MEDS: Ferrous Sulfate 325 MG TAB PO SCH (08:22)
[2019-10-14] MEDS: Magnesium Oxide 400 MG TAB PO SCH ×2 (08:22→20:43)
[2019-10-14] MEDS: Carvedilol 3.125 MG TAB PO SCH ×2 (08:22→17:20)
[2019-10-14] MEDS: Lidocaine 5% Patch TD SCH (08:23)
[2019-10-14] MEDS: Polyethylene Glycol 3350 17 GM Packet PO SCH (08:23)
--- NOTE | 2019-10-14 11:22 | PRG ---
DATE OF SERVICE: 10/14/2019 SUBJECTIVE: Ms. Tillman is resting in bed. She states that she feels tired. She is tolerating her dialysis. giving her info on how to arrange for dialysis transportation, but the patient states that she may just have her son-in-law take her. Plan is to try to titrate her off the oxygen. Discussed with therapy, and they state the patient is improving and hopefully should be ready to go home by the middle of next week. OBJECTIVE: VITAL SIGNS: The patient is afebrile, heart rate 71, respirations 18, oxygen saturation 99% on 1 L, blood pressure 159/68. CARDIOVASCULAR: S1 and S2 plus. RESPIRATORY: Normal vesicular breath sounds. ABDOMEN: Soft and nontender. Bowel sounds heard in all quadrants. EXTREMITIES: Without cyanosis or clubbing. CENTRAL NERVOUS SYSTEM: Improving deconditioning. LABORATORY DATA: Blood sugars are 119, 174, 196, and 142. IMPRESSION: 1. Diabetes mellitus, type 2. 2. Systemic and pulmonary hypertension. 3. Acute hypoxemic respiratory failure. 4. End-stage renal disease, now on hemodialysis. 5. Improving deconditioning. 6. Biliary stricture, status post stent placement. PLAN: 1. Continue current medications. 2. 1800-calorie heart-healthy ADA diet. 3. Accu-Cheks with sliding scale coverage. 4. Titrate oxygen and monitor respiratory status. 5. Await records from the [facility]. We have asked for it twice. 6. Discharge planning. 7. Continue hemodialysis. 8. Recheck labs tomorrow. Job ID: [id number]
[2019-10-14] MEDS: HYDROcodone/Acetaminophen 7.5/325 mg Tablet PO PRN (17:32)
[2019-10-14] MEDS: HumaLOG 300 UNITS/3 ML VIAL SC PRN (17:34)
[2019-10-14] MEDS: Lidocaine Patch Removal 1 EACH TOP SCH (20:44)
[2019-10-15 05:46] LABS: Band 6 % (5-11); Eosinophils 2 % (0-10); Hemoglobin 7.9 g/dL (12.0-16.0); Lymphocytes 24 % (21-51); MDiff Complete? YES; Mean Corpuscular HGB CONC 30.2 g/dL (32.0-36.0); Mean Corpuscular Hemoglobin 28.1 pg (27.0-31.0); Mean Corpuscular Volume 93.2 fL (78.0-98.0); Mean Platelet Volume 7.7 fL (7.4-10.4); Monocytes 6 % (0-10); Neutrophil 62 % (42-75); Platelet Count 199 thou/uL (130-400); Platelet Morphology Comment Appears Adequate; RBC Distribution Width 15.4 % (11.5-14.5); Red Blood Cell (RBC) Count 2.82 mill/uL (4.20-5.40); Stomatocytes SLIGHT = 2-5 cells (100X) (0-1/hpf); Target Cells SLIGHT = 2-5 cells (100X) (0-1/hpf); White Blood Cell (WBC) Count 5.4 thou/uL (4.8-10.8)
--- NOTE | 2019-10-15 06:57 | PRG ---
DATE OF SERVICE: 10/15/2019 SUBJECTIVE: Ms. Tillman is up in bed. She apparently slept decent. She is off her oxygen. She denies any questions or concerns. She is getting ready for her dialysis this morning. OBJECTIVE: VITAL SIGNS: She is afebrile. Heart rate is 69, respirations 20, oxygen saturation 93% on room air, blood pressure 139/64. CARDIOVASCULAR SYSTEM: S1 and S2 plus. RESPIRATORY SYSTEM: Normal vesicular breath sounds. ABDOMEN: Soft, nontender. Bowel sounds heard in all quadrants. EXTREMITIES: Without cyanosis or clubbing. CENTRAL NERVOUS SYSTEM: Improving deconditioning. LABORATORY VALUES: White count is 5.4, H and H are 7.9 and 26.2. Blood sugars are 174, 191, and 137. IMPRESSION: 1. Diabetes mellitus, type 2. 2. Systematic and pulmonary hypertension. 3. Resolved acute hypoxemic respiratory failure. 4. Biliary stricture requiring stent placement. 5. End-stage renal disease, now on hemodialysis. 6. Deconditioning. PLAN: 1. Continue current medications. 2. 1800-calorie heart healthy ADA renal diet. 3. Hemodialysis Thursday, , Thursday. 4. Accu-Cheks with sliding scale coverage. 5. Await records from [facility]. 6. Continue therapy. 7. Discharge planning. Anticipate her going home early next week. Job ID: [id number]
[2019-10-15] MEDS: Docusate 100 MG CAP PO SCH ×2 (08:15→20:51)
[2019-10-15] MEDS: Polyethylene Glycol 3350 17 GM Packet PO SCH (08:15)
[2019-10-15] MEDS: Magnesium Oxide 400 MG TAB PO SCH ×2 (08:15→20:52)
[2019-10-15] MEDS: Ferrous Sulfate 325 MG TAB PO SCH (08:16)
[2019-10-15] MEDS: Sildenafil Citrate 20 MG TAB PO SCH ×3 (08:16→20:52)
[2019-10-15] MEDS: Famotidine 20 MG TAB PO SCH ×2 (08:16→20:53)
[2019-10-15] MEDS: hydrALAZINE 10 MG TAB PO SCH ×3 (08:17→20:59)
[2019-10-15] MEDS: NIFEdipine XL 30 MG TAB PO SCH (08:17)
[2019-10-15] MEDS: Carvedilol 3.125 MG TAB PO SCH ×2 (08:18→16:33)
[2019-10-15] MEDS: Lidocaine 5% Patch TD SCH (08:21)
[2019-10-15] MEDS ORDERED: EPOETIN ALFA-EPBX (ESRD) 10,000 UNIT/ML VIAL SC SCH (09:00)
[2019-10-15] MEDS: HumaLOG 300 UNITS/3 ML VIAL SC PRN (16:57)
[2019-10-15] MEDS: Lidocaine Patch Removal 1 EACH TOP SCH (19:33)
[2019-10-15] MEDS: HYDROcodone/Acetaminophen 7.5/325 mg Tablet PO PRN (20:53)
[2019-10-16] MEDS: Albuterol Sulfate 2.5 mg/3 ml Neb NEB PRN ×2 (05:52→15:45)
[2019-10-16] MEDS: hydrALAZINE 10 MG TAB PO SCH ×2 (08:11→21:03)
[2019-10-16] MEDS: NIFEdipine XL 30 MG TAB PO SCH (08:13)
[2019-10-16] MEDS: Ferrous Sulfate 325 MG TAB PO SCH (08:14)
[2019-10-16] MEDS: Carvedilol 3.125 MG TAB PO SCH ×2 (08:14→15:46)
[2019-10-16] MEDS: Famotidine 20 MG TAB PO SCH ×2 (08:14→21:02)
[2019-10-16] MEDS: Magnesium Oxide 400 MG TAB PO SCH ×2 (08:15→21:02)
[2019-10-16] MEDS: Docusate 100 MG CAP PO SCH ×2 (08:15→21:02)
[2019-10-16] MEDS: Lidocaine 5% Patch TD SCH ×2 (08:15→12:10)
[2019-10-16] MEDS: Sildenafil Citrate 20 MG TAB PO SCH ×3 (08:16→21:03)
[2019-10-16] MEDS: Polyethylene Glycol 3350 17 GM Packet PO SCH (08:16)
[2019-10-16] MEDS: HumaLOG 300 UNITS/3 ML VIAL SC PRN (11:56)
--- NOTE | 2019-10-16 13:44 | PRG ---
DATE OF SERVICE: 10/16/2019 SUBJECTIVE: Ms. Tillman is resting in bed. She states that she would like something for sleep. She is doing well otherwise. She is remaining off her oxygen and saturating well. Plan is for her to be discharged probably Thursday or Thursday of next week. OBJECTIVE: VITAL SIGNS: She is afebrile. Heart rate 66, respirations 18, oxygen saturation 95% on room air, blood pressure 180/88, this was before her morning blood pressure medicines. CARDIOVASCULAR: S1 and S2 plus. RESPIRATORY: Normal vesicular breath sounds. ABDOMEN: Soft and nontender. Bowel sounds heard in all quadrants. EXTREMITIES: Without cyanosis or clubbing. CENTRAL NERVOUS SYSTEM: Improving deconditioning. LABORATORY DATA: Blood sugars are 234, 186, 120, and 302. IMPRESSION: 1. Diabetes mellitus, type 2. 2. Systemic and pulmonary hypertension. 3. End-stage renal disease, now on hemodialysis. 4. Resolved acute hypoxemic respiratory failure. 5. Biliary stricture with possible stent placement. I am waiting on records of the procedure and biopsy report. They sent me a biopsy report from 2017, on her colonoscopy. Nursing is to call them again. 6. Improving deconditioning. 7. Dyslipidemia. 8. Gastroesophageal reflux disease. PLAN: 1. Continue current medications. 2. 1800-calorie heart-healthy ADA renal diet. 3. Accu-Cheks with sliding scale coverage. 4. DVT prophylaxis with PlexiPulses. 5. Decubitus precautions. 6. Stress ulcer prophylaxis. 7. Dialysis per Nephrology. 8. Continue therapy. 9. Discharge planning. 10. Start melatonin for sleep. Job ID: [id number]
[2019-10-16] MEDS: Melatonin 3 MG TAB PO PRN (21:03)
[2019-10-16] MEDS: Lidocaine Patch Removal 1 EACH TOP SCH (21:03)
[2019-10-17] MEDS: Ferrous Sulfate 325 MG TAB PO SCH (08:41)
[2019-10-17] MEDS: Docusate 100 MG CAP PO SCH ×2 (08:42→21:21)
[2019-10-17] MEDS: Sildenafil Citrate 20 MG TAB PO SCH ×3 (08:42→21:21)
[2019-10-17] MEDS: NIFEdipine XL 30 MG TAB PO SCH (08:42)
[2019-10-17] MEDS: hydrALAZINE 10 MG TAB PO SCH ×2 (08:42→21:21)
[2019-10-17] MEDS: Carvedilol 3.125 MG TAB PO SCH ×2 (08:43→15:51)
[2019-10-17] MEDS: Lidocaine 5% Patch TD SCH (08:43)
[2019-10-17] MEDS: Famotidine 20 MG TAB PO SCH ×2 (08:43→21:21)
[2019-10-17] MEDS: Magnesium Oxide 400 MG TAB PO SCH ×2 (08:43→21:21)
[2019-10-17] MEDS: Polyethylene Glycol 3350 17 GM Packet PO SCH (08:44)
[2019-10-17] MEDS: HumaLOG 300 UNITS/3 ML VIAL SC PRN ×2 (12:11→21:21)
[2019-10-17] MEDS: Melatonin 3 MG TAB PO PRN (21:21)
[2019-10-17] MEDS: Lidocaine Patch Removal 1 EACH TOP SCH (21:22)
[2019-10-18] MEDS: Ferrous Sulfate 325 MG TAB PO SCH (08:05)
[2019-10-18] MEDS: Lidocaine 5% Patch TD SCH (08:05)
[2019-10-18] MEDS: Polyethylene Glycol 3350 17 GM Packet PO SCH (08:05)
[2019-10-18] MEDS: Docusate 100 MG CAP PO SCH ×2 (08:05→21:10)
[2019-10-18] MEDS: Sildenafil Citrate 20 MG TAB PO SCH ×3 (08:06→21:10)
[2019-10-18] MEDS: Famotidine 20 MG TAB PO SCH ×2 (08:06→21:10)
[2019-10-18] MEDS: Magnesium Oxide 400 MG TAB PO SCH ×2 (08:06→21:10)
[2019-10-18] MEDS: Carvedilol 3.125 MG TAB PO SCH ×2 (08:07→16:32)
[2019-10-18] MEDS: hydrALAZINE 10 MG TAB PO SCH ×2 (08:07→21:10)
[2019-10-18] MEDS: NIFEdipine XL 30 MG TAB PO SCH (08:08)
--- NOTE | 2019-10-18 13:54 | PRG ---
DATE OF SERVICE: 10/18/2019 SUBJECTIVE: Ms. Tillman is doing well, seen on her way to dialysis, anticipated to be discharged tomorrow. I had a long discussion with her daughter and explained her that the patient needs to follow up with a [facility] as outpatient. Finally got the ERCP report and a stent was placed for the biliary stricture, but no biopsies or brushings were done. Dr. Manzanares recommends that she go to tertiary care center for removal of the biliary stent as well as to further evaluate the stricture to rule out malignancy. OBJECTIVE: VITAL SIGNS: The patient is afebrile. Heart rate 73, respirations 18, oxygen saturation 99% on room air, last blood pressure 138/62. CARDIOVASCULAR: S1 and S2 plus. RESPIRATORY: Normal vesicular breath sounds. ABDOMEN: Soft, nontender. Bowel sounds heard in all quadrants. EXTREMITIES: Without cyanosis or clubbing. CENTRAL NERVOUS SYSTEM: Improving deconditioning. LABORATORY DATA: Blood sugars are 113, 291, 138, 252, and 129. IMPRESSION: 1. Pulmonary and systemic hypertension. 2. Diabetes mellitus type 2. 3. Biliary stricture, status post stent placement. 4. End-stage renal disease, now on hemodialysis. 5. Resolved acute hypoxemic respiratory failure. 6. Dyslipidemia. 7. Gastroesophageal reflux disease. 8. Improving deconditioning. PLAN: 1. Continue current medications. 2. 1800 calorie heart healthy ADA renal diet. 3. Continue hemodialysis. 4. Discharge planning. 5. DVT and stress ulcer prophylaxis. 6. Decubitus precaution. 7. Outpatient followup with Gastroenterology. 8. Recheck liver panel tomorrow. 9. Continue therapy. Job ID: [id number]
--- NOTE | 2019-10-18 14:18 | PRG ---
DATE OF SERVICE: 10/17/2019 SUBJECTIVE: Ms. Tillman is up in her chair. She states that she slept great with the melatonin. She denies any questions or concerns. I also spoke with her daughter in detail over the telephone. I explained to her that mom will be discharged on Thursday, and she will have an appointment scheduled with her platform engineer, who then will arrange for her to follow up in [place] for the removal of biliary stent. The patient will continue her hemodialysis Thursday, , and Thursday, and apparently, her son-in-law will be providing the transportation. OBJECTIVE: VITAL SIGNS: She is afebrile. Heart rate is 65, respirations are 20, oxygen saturation 100%. Blood pressure yesterday morning was 177/82, this was before her blood pressure medicines. CARDIOVASCULAR: S1 and S2 plus. RESPIRATORY: Normal vesicular breath sounds. ABDOMEN: Soft and nontender. Bowel sounds heard in all quadrants. EXTREMITIES: Without cyanosis or clubbing. CENTRAL NERVOUS SYSTEM: Improving deconditioning. IMPRESSION: 1. Systemic and pulmonary hypertension. 2. Biliary stricture, requiring stent placement. 3. End-stage renal disease, now on hemodialysis. 4. Diabetes mellitus, type 2. 5. Hypertension. 6. Dyslipidemia. 7. Gastroesophageal reflux disease. 8. Deconditioning. 9. Resolved acute hypoxemic respiratory failure. PLAN: 1. Continue current medications. 2. 1800-calorie heart-healthy ADA renal diet. 3. Continue hemodialysis. 4. Continue therapy. 5. Discharge planning. 6. Routine laboratory values. 7. Schedule appointment with GI. Job ID: [id number]
[2019-10-18] MEDS: HumaLOG 300 UNITS/3 ML VIAL SC PRN ×2 (17:30→21:07)
[2019-10-18] MEDS: Melatonin 3 MG TAB PO PRN (21:10)
[2019-10-18] MEDS: HYDROcodone/Acetaminophen 7.5/325 mg Tablet PO PRN (21:11)
[2019-10-18] MEDS: Lidocaine Patch Removal 1 EACH TOP SCH (21:12)
[2019-10-19 05:42] LABS: ALT (SGPT) 60 U/L (8-55); AST (SGOT) 73 U/L (5-34); Albumin 2.8 g/dL (3.4-4.8); Alkaline Phosphatase 494 U/L (40-110); Bilirubin, Direct 0.6 mg/dL (0.1-0.3); Bilirubin, Total 0.6 mg/dL (0.2-1.2)
[2019-10-19 08:23] VITALS: TEMP 97.7
[2019-10-19] MEDS: Docusate 100 MG CAP PO SCH (08:34)
[2019-10-19] MEDS: Ferrous Sulfate 325 MG TAB PO SCH (08:34)
[2019-10-19] MEDS: Carvedilol 3.125 MG TAB PO SCH (08:34)
[2019-10-19] MEDS: Famotidine 20 MG TAB PO SCH (08:34)
[2019-10-19] MEDS: Sildenafil Citrate 20 MG TAB PO SCH (08:34)
[2019-10-19] MEDS: Magnesium Oxide 400 MG TAB PO SCH (08:34)
[2019-10-19] MEDS: hydrALAZINE 10 MG TAB PO SCH (08:34)
[2019-10-19] MEDS: Lidocaine 5% Patch TD SCH (08:35)
[2019-10-19] MEDS: NIFEdipine XL 30 MG TAB PO SCH (08:35)
[2019-10-19] MEDS: Polyethylene Glycol 3350 17 GM Packet PO SCH (09:18)
[2019-10-19 09:22] VITALS: BP 171/76
--- NOTE | 2019-10-21 10:24 | DIS ---
DATE OF ADMISSION: 10/07/2019 DATE OF DISCHARGE: 10/19/2019 PRINCIPAL DIAGNOSIS: Acute hypoxemic respiratory failure, which has resolved. SECONDARY DIAGNOSES: 1. Progression of chronic kidney disease. 2. End-stage renal disease, starting to require dialysis. 3. Diabetes mellitus type 2. 4. Pulmonary and systemic hypertension. 5. Dyslipidemia. 6. Gastroesophageal reflux disease. 7. History of colon cancer. 8. Biliary stricture requiring stent placement. 9. History of gout. COMPLICATIONS: None. ADVERSE REACTIONS: None. PROCEDURES: None. CONSULTATIONS: None. HOSPITAL COURSE: The patient was admitted as a transfer after presenting to the hospital with nausea and vomiting. She was noticed to have elevated liver function tests and possible biliary stricture and underwent stent placement. No brushings were done due to lack of a biliary brush. She also was noted to have worsening renal function, requiring to start on dialysis. She had a tunneled right subclavian dialysis catheter placed. She was transferred here for therapy. She was weaned off her oxygen. She has been tolerating her dialysis. Her blood pressures have been fluctuating and slight adjustments to her medications were made, specifically not to take any blood pressure medicines except where she on dialysis days in the morning. She has been ambulating with therapy and was deemed stable for discharge to home. I spoke with her daughter and all arrangements were made. She is to follow up with Dr. Manzanares, the statistical assistant, who is going to schedule her with the specialists in [place] for removal of stent and possible brushings to rule out malignancy. She has been scheduled for dialysis Thursday, , and Thursday. [facility] has been arranged for continued therapy. The patient is homebound and will benefit from therapy. She also was recently started on dialysis, has a dialysis catheter, which also needs to be taken care of, so she will also need longterm visit. This note is to be used as a [id number]. PHYSICAL EXAMINATION: VITAL SIGNS: On the day of discharge, she is afebrile. Heart rate 70, respirations 20, oxygen saturation 97% on room air, blood pressure was 183/84 and recheck was 171/76. CARDIOVASCULAR: S1 and S2 plus. RESPIRATORY: Normal vesicular breath sounds. ABDOMEN: Soft, nontender. Bowel sounds heard in all quadrants. EXTREMITIES: Without cyanosis or clubbing. CENTRAL NERVOUS SYSTEM: Generalized weakness, otherwise nonfocal. DISCHARGE MEDICATIONS: 1. Carvedilol 3.125 mg b.i.d. 2. Colace 100 mg b.i.d. 3. Pepcid 20 mg b.i.d. 4. Iron sulfate 325 daily. 5. Hydralazine 10 mg b.i.d. 6. Mag-Ox 400 mg b.i.d. 7. Procardia XL 30 mg daily. 8. MiraLAX 17 g in 8 ounces of water daily. 9. Revatio 20 mg t.i.d. Month's supply of all these medicines was sent in to her local pharmacy. Spoke with her daughter and all questions were answered. [facility] was informed. DME as recommended by therapy was ordered. For full details, please see chart. On the day of discharge, I did recheck her liver function tests and her AST is 73, ALT 60, alkaline phosphatase is 494, which is the same to slightly worse, but she will be following up with Gastroenterology and she has been completely asymptomatic from the GI standpoint. Total time spent on this discharge 35 minutes. Job ID: [id number]
== END 2019-10-19 10:50 | disposition home health service (06) | DRG 291 ==
LOC: NAV ACUTE 20:23
PROVIDERS: ADMIT Internal Medicine; ATTEND Internal Medicine
DX: I13.2 Hypertensive heart and chronic kidney disease with heart failure and with stage 5 chronic kidney disease, or end stage renal disease (principal); N18.6 End stage renal disease; J96.01 Acute respiratory failure with hypoxia; K83.1 Obstruction of bile duct; C18.9 Malignant neoplasm of colon, unspecified; E11.22 Type 2 diabetes mellitus with diabetic chronic kidney disease; E78.5 Hyperlipidemia, unspecified; D63.1 Anemia in chronic kidney disease; K21.9 Gastro-esophageal reflux disease without esophagitis; I50.9 Heart failure, unspecified; I27.20 Pulmonary hypertension, unspecified; R53.81 Other malaise; M10.9 Gout, unspecified; Z90.49 Acquired absence of other specified parts of digestive tract; Z79.4 Long term (current) use of insulin; Z99.2 Dependence on renal dialysis
CPT/HCPCS: 36415; 36416; 80053; 80076; 85025; 86850; 86900; 86901; J7611; Q0162; Q5105

== ENCOUNTER 2019-11-23 19:57 | Emergency (ER) | payer MEDICARE, MEDICAID ==
[~2019-11-23 19:57] MED LIST: Iopamidol 370 76% 100 ML VIAL ONE
[2019-11-23 20:31] LABS: Hemoglobin 9.6 g/dL (12.0-16.0); Mean Corpuscular HGB CONC 30.9 g/dL (32.0-36.0); Mean Corpuscular Hemoglobin 28.5 pg (27.0-31.0); Mean Corpuscular Volume 92.1 fL (78.0-98.0); Mean Platelet Volume 7.8 fL (7.4-10.4); Platelet Count 227 thou/uL (130-400); RBC Distribution Width 15.6 % (11.5-14.5); Red Blood Cell (RBC) Count 3.37 mill/uL (4.20-5.40); White Blood Cell (WBC) Count 24.8 thou/uL (4.8-10.8)
[2019-11-23 20:32] LABS: INR-International Normal Ratio 1.2; Prothrombin Time 15.4 sec (12.0-14.7)
[2019-11-23] MEDS ORDERED: Piperacillin/Tazobactam 3.375 GM VIAL ONE (20:39)
[2019-11-23] MEDS ORDERED: cefTRIAXone\\ROCEPHIN 1 GM VIAL ONE (20:39)
[2019-11-23 20:40] LABS: Anion Gap 18 mmol/L (10-20); BUN (Urea Nitrogen) 31 mg/dL (9.8-20.1); Band 37 % (5-11); Calc. Creatinine Clearance 0 mL/min (70-130); Carbon Dioxide 26 mmol/L (23-31); Chloride 96 mmol/L (98-107); Estimated GFR-MDRD 16; Hypochromia SLIGHT = 6-15 cells (100X) (0-5/hpf); Lymphocytes 2 % (21-51); MDiff Complete? YES; Monocytes 1 % (0-10); Neutrophil 60 % (42-75); Platelet Morphology Comment Appears Adequate; Sodium 136 mmol/L (136-145)
[2019-11-23] MEDS ORDERED: Sodium Chloride 0.9% 200 ML ONE (20:40)
[2019-11-23 20:41] LABS: ALT (SGPT) 11 U/L (8-55); AST (SGOT) 16 U/L (5-34); Albumin 2.8 g/dL (3.4-4.8); Alkaline Phosphatase 166 U/L (40-110); Bilirubin, Total 0.7 mg/dL (0.2-1.2); Calcium 8.3 mg/dL (7.8-10.44); Globulin 3.3 g/dL (2.4-3.5); Glucose 223 mg/dL (83-110); Protein, Total 6.1 g/dL (6.0-8.3)
--- NOTE | 2019-11-23 20:46 | CT ---
CT HEAD WITHOUT IV CONTRAST COMPARISON: 07/04/2019 HISTORY: Code stroke. Left arm weakness. TECHNIQUE: Axial CT imaging at 5 mm intervals from vertex through skull base without contrast FINDINGS: There is mild cerebral volume loss. Low-density areas again seen within the right lentiform nucleus l ikely due to remote lacunar infarction. This area was also seen on CT exam on 10/16/2018. Small low-density foci are seen in each cerebellar hemisphere suggesting remote infarctions. There is no ev idence of an acute infarction, hemorrhage, mass effect, or midline shift. The ventricular system is normal in size, shape, and position. Visualized paranasal sinuses are clear. Osseous structures appear intact. IMPRESSION: 1. No acute intracranial abnormality demonstrated. 2. Chronic findings. 3. Above findings discussed Dr. Centeno the emergency department on 11/23/2019 at 2042 hours.
[2019-11-23 20:54] LABS: Troponin I 0.898 ng/mL (< 0.028)
[2019-11-23 20:57] LABS: Critical Call Chem Troponin I 2051 AHW
[2019-11-23] MEDS ORDERED: Aspirin Chewable 81 MG TAB ONE ×2 (21:23)
--- NOTE | 2019-11-23 21:25 | CT ---
CTA OF THE HEAD WITH IV CONTRAST AND 3D REFORMATTED IMAGING CTA OF THE NECK WITH IV CONTRAST AND 3D REFORMATTED IMAGIN11/23/19 INDICATION: History of left arm weakness. COMPARISON: Noncontrast CT of the brain dated 11/23/19. FINDINGS: CTA OF THE NECK: There is severe emphysema. There is a right IJ dialysis catheter. There are numerous hypodensities in volving the thyroid gland. There is mild diffuse anasarca. No definite pathologically enlarged lymph nodes are grossly evident. The submandibular and parotid glands bilaterally appear within normal limi ts. The visualized aspects of the aerodigestive tract appear within normal limits. There is an ACDF a t C3-C4. The visualized aortic arch demonstrates vascular calcifications. The right brachiocephalic artery negro gin is patent. The right subclavian artery is patent. The right common carotid artery is patent. Righ t carotid bulb demonstrates mild atherosclerotic calcifications. The right internal carotid artery is patent throughout its cervical course. Left common carotid artery is widely patent. Left carotid bulb is patent. There is some mild luminal caliber narrowing involving the proximal left internal carotid artery. The remaining course of the ce rvical left ICA is patent. The left vertebral artery is diminutive throughout its entire course without focal stenosis. The righ t vertebral artery appears patent throughout its course. CTA OF THE HEAD: The left vertebral artery is diminutive and appears to terminate at the left DELIVERY RN. The basilar, intrac ranial right vertebral artery and sewer cleaner appear patent. The bilateral MCAs appear intact. There are mod erate calcifications involving the cavernous and supraclinoid ICAs. The intracranial ICAs do appear p atent. The ACAs appear patent. No definite abnormal region of enhancement is noted. IMPRESSION: 1. No large vessel stenosis, occlusion or aneurysmal formation is seen involving the head. 2. Diminutive left vertebral artery which terminates as the left PICA. 3. No hemodynamically significant stenosis seen within the neck. There is some mild luminal jacob hoang narrowing involving the proximal left ICA. 4. Right IJ dialysis catheter. 5. Prominent emphysema. 6. Numerous tiny thyroid nodules. POS: BH
--- NOTE | 2019-11-23 21:40 | RAD ---
EXAM: CHEST ONE VIEW HISTORY: Left arm weakness. COMPARISON: 10/21/2019 FINDINGS: A tunneled right internal jugular vein hemodialysis catheter is again noted in place and unchanged in position. Cardiac silhouette is magnified by projection but stable in size. There is increased perihilar interstitial markings bilaterally with greater increased interstitial densities seen at the right lung base. Findings may be related to asymmetric pulmonary edema or infectious process. No consolidation or pleural fluid is identified. Pulmonary vasculature is at the upper limits of normal. Vascular calcifications are seen in the thoracic aorta. Postoperative changes right shoulder are again seen. IMPRESSION: Increased perihilar interstitial opacities which may be related to infectious process or pulmonary ed radha. Continued follow-up is recommended.
== END 2019-11-23 21:53 | disposition short-term general hospital (02) ==
LOC: NAV ERS 19:57
DX: A41.9 Sepsis, unspecified organism (principal); I12.0 Hypertensive chronic kidney disease with stage 5 chronic kidney disease or end stage renal disease; N18.6 End stage renal disease; I95.9 Hypotension, unspecified; R53.1 Weakness; E11.22 Type 2 diabetes mellitus with diabetic chronic kidney disease; Z87.891 Personal history of nicotine dependence; Z79.899 Other long term (current) drug therapy
CPT/HCPCS: 36416; 70450; 70496; 70498; 71045; 80053; 82553; 83605; 83880; 84484; 85025; 85610; 85730; 87040; 87077; 87149; 87186; 93005; 94760; 96361; 96365; 96375; 36415-59; J0696; J2543; J3490; Q9967